=== PATIENT | male | born 1975 | race Caucasian/White ===

== ENCOUNTER 2020-06-24 09:39 | Outpatient (CLI) | payer OTHER ==
[2020-06-24] MEDS ORDERED: ALBUTEROL 2.5 MG/3 ML NEBU IH ONE (10:33)
== END 2020-06-24 09:40 | disposition home or self-care (01) ==
LOC: PF 09:39
PROVIDERS: ATTEND Internal Medicine
DX: J44.9 Chronic obstructive pulmonary disease, unspecified (principal)